=== PATIENT | male | born 1970 | race Two or more races ===

== ENCOUNTER 2017-06-30 22:02 | Emergency (ER) | payer OTHER ==
[2017-06-30 22:16] VITALS: BP 134/87
--- NOTE | 2017-06-30 22:48 | ED Physician Documentation ---
PD HPI URI - Stated complaint Stated Complaint: COUGH/SOA - Chief complaint Chief Complaint: Resp - History obtained from History obtained from: Patient - History of Present Illness Timing - onset: How many weeks ago (3) Timing duration: Weeks (3) Timing details: Gradual onset, Still present Associated symptoms: Fever (the first week), Sore throat (the past few days worse), Productive cough. No: Chest pain Contributing factors: Travel (visiting here from [facility]. Will be returning in a week or so.). No: Sick contact, Immunocompromised, COPD / asthma Similar symptoms before: Has not had sx before Recently seen: Not recently seen Review of Systems Constitutional: reports: Fever (the first few days/week) Nose: reports: Congestion Throat: reports: Sore throat Cardiac: reports: Chest pain / pressure (sternal area with cough). denies: Palpitations Respiratory: reports: Cough. denies: Dyspnea, Wheezing GI: denies: Nausea, Vomiting, Diarrhea Neurologic: denies: Generalized weakness, Near syncope PD PAST MEDICAL HISTORY - Past Medical History Past Medical History: Yes Respiratory: None Endocrine/Autoimmune: Type 2 diabetes - Past Surgical History Past Surgical History: Yes Ortho: Other - Present Medications Home Medications: Ambulatory Orders Medication Instructions Recorded Confirmed Insulin NPH Human [NovoLIN N] 20 ml SQ DAILY 06/18/15 06/30/17 Lisinopril 10 mg PO DAILY 06/18/15 06/30/17 Simvastatin 20 mg PO DAILY 06/18/15 06/30/17 glipiZIDE [Glucotrol] 5 mg PO BID 06/18/15 06/30/17 metFORMIN [Glucophage] 1,000 mg PO BID 06/18/15 06/30/17 Albuterol Sulfate [Proair Hfa 2 puffs IH QID #1 hfa.aer.ad 06/30/17 Inhaler] Benzonatate [Tessalon] 100 mg PO TID PRN #25 capsule 06/30/17 Doxycycline Hyclate 100 mg PO BID #14 tablet 06/30/17 guaiFENesin/CODEINE [Robitussin AC] 10 ml PO Q6H PRN #240 ml 06/30/17 - Allergies Allergies/Adverse Reactions: Allergies Allergy/AdvReac Type Severity Reaction Status Date / Time Sulfa (Sulfonamide Allergy Hives Verified 06/30/17 22:15 Antibiotics) - Living Situation Living Situation: reports: With spouse/s.o. Living Arrangement: reports: At home (in [facility]; visiting family here [place]. ) - Social History Does the pt smoke?: No Smoking Status: Never smoker Does the pt drink ETOH?: Yes Does the pt have substance abuse?: No - Immunizations Immunizations are current?: Yes - POLST Patient has POLST: No PD ED PE NORMAL - Vitals Vital signs reviewed: Yes - General General: Alert and oriented X 3, No acute distress, Well developed/nourished - HEENT HEENT: Ears normal, Pharynx benign - Neck Neck: Supple, no meningeal sign, No JVD - Cardiac Cardiac: RRR, No murmur - Respiratory Respiratory: No respiratory distress, Clear bilaterally (but moderate to deep breathing causes coughing. ) - Extremities Extremities: Normal ROM s pain, No edema, No calf tenderness / cord - Neuro Neuro: Alert and oriented X 3, No motor deficit, Normal speech Results - Vitals Vitals: Vital Signs - 24 hr 06/30/17 06/30/17 22:12 23:21 Temperature 35.8 C L Heart Rate 90 99 Respiratory 18 16 Rate Blood Pressure 134/87 H O2 Saturation 97 Oxygen O2 Source Room air PD MEDICAL DECISION MAKING - ED course Complexity details: considered differential (did not give steroids due to his diabetes. May be perisstent cough after URI, but given duration of it and some sputum/feeling worse now, consider possible bacterial transformation. ), d/w patient Departure - Departure Disposition: 01 Home, Self Care Clinical Impression: Persistent cough for 3 weeks or longer Upper respiratory infection Qualifiers: URI type: unspecified URI Qualified Code(s): J06.9 - Acute upper respiratory infection, unspecified Condition: Stable Record reviewed to determine appropriate education?: Yes Instructions: ED Upper Resp Infec Abx Tx Prescriptions: Doxycycline Hyclate 100 mg PO BID #14 tablet Albuterol Sulfate [Proair Hfa Inhaler] 2 puffs IH QID #1 hfa.aer.ad guaiFENesin/CODEINE [Robitussin AC] 10 ml PO Q6H PRN #240 ml PRN Reason: Cough Benzonatate [Tessalon] 100 mg PO TID PRN #25 capsule PRN Reason: Cough Comments: It is likely that you had a chest cold/bronchitis and now just having persistent irritation and thus the long cough. However there may still be some infection persisting. We will treated with an Albuterol inhaler 2 puffs 4 times a day to help reduce coughing and improved breathing. Also benzonatate helps with the cough suppression. Add cough medicine if needed. For the potential of bacterial infection, would also add doxycycline twice daily for a week. Recheck if not improving over the next several days. Discharge Date/Time: 07/01/17 00:00
[2017-06-30] MEDS ORDERED: DOXYCYCLINE 100 MG TABLET PO STA (23:09)
[2017-06-30] MEDS ORDERED: BENZONATATE 100 MG CAPSULE PO STA (23:09)
[2017-06-30] MEDS ORDERED: ALBUTEROL NEB 2.5 MG/3 ML INH STA (23:09)
[2017-06-30] MEDS ORDERED: guaiFENesin/CODEINE 5 ML UDC PO STA (23:09)
[2017-06-30] MEDS ORDERED: BENZONATATE 100 MG CAPSULE PO ONE (23:16)
[2017-06-30] MEDS ORDERED: DOXYCYCLINE 100 MG TABLET PO ONE (23:16)
[2017-06-30] MEDS ORDERED: guaiFENesin/CODEINE 5 ML UDC ONE (23:17)
[2017-06-30] MEDS ORDERED: ALBUTEROL NEB 2.5 MG/3 ML INH ONE (23:18)
== END 2017-07-01 | disposition home or self-care (01) ==
LOC: ED 22:02
DX: J06.9 Acute upper respiratory infection, unspecified (principal); E11.9 Type 2 diabetes mellitus without complications; Z79.4 Long term (current) use of insulin
CPT/HCPCS: 94640; 99283; A9270; J7613